=== PATIENT | female | born 1955 | race Two or more races ===

== ENCOUNTER → 2019-11-19 11:16 | Outpatient (CLI) | payer OTHER ==
[~2019-11-19 11:16] MED LIST: PERCOCET 5-3251 EACH PO; [UNRECOGNIZED DRUG - OTHER] PO
== END | disposition home or self-care (01) ==
LOC: LAB 11:16
PROVIDERS: ATTEND Surgery
DX: C50.811 Malignant neoplasm of overlapping sites of right female breast (principal)

== ENCOUNTER 2019-11-19 12:06 | Outpatient (CLI) | payer OTHER ==
[2019-11-24] MEDS ORDERED: [UNRECOGNIZED DRUG - OTHER] PO (12:47)
== END 2019-11-19 12:08 | disposition home or self-care (01) ==
LOC: RAD 12:06
PROVIDERS: ATTEND Surgery
DX: C50.811 Malignant neoplasm of overlapping sites of right female breast (principal)

== ENCOUNTER 2019-11-25 06:07 | Day surgery (SDC) | payer OTHER ==
[~2019-11-25 06:07] MED LIST changes: -PERCOCET 5-3251 EACH PO
[2019-11-25] MEDS ORDERED: PERCOCET 5-3251 EACH PO (12:34)
== END 2019-11-25 12:55 | disposition home or self-care (01) ==
LOC: CIR.AMB 06:07
PROVIDERS: ATTEND Surgery
DX: C50.811 Malignant neoplasm of overlapping sites of right female breast (principal); Z20.828 Contact with and (suspected) exposure to other viral communicable diseases
CPT/HCPCS: 36561; C1751

== ENCOUNTER 2023-11-29 07:03 | Outpatient (CLI) | payer OTHER ==
[~2023-11-29 07:03] MED LIST changes: +PERCOCET 5-3251 EACH PO
== END 2023-11-29 07:04 | disposition home or self-care (01) ==
LOC: NUCLEAR 07:03
PROVIDERS: ATTEND Internal Medicine
DX: C50.919 Malignant neoplasm of unspecified site of unspecified female breast (principal)
CPT/HCPCS: 78315; A9503